=== PATIENT | female | born 1970 | race Caucasian/White ===

== ENCOUNTER → 2017-02-07 | Outpatient (CLI) | payer OTHER | LOC: BMCIMAGING 08:32 | PROVIDERS: ATTEND Internal Medicine | DX: Z12.31 Encounter for screening mammogram for malignant neoplasm of breast (principal) | CPT/HCPCS: G0202 ==

== ENCOUNTER → 2018-02-06 | Outpatient (CLI) | payer OTHER | LOC: BMCIMAGING 11:53 | PROVIDERS: ATTEND Internal Medicine Rheumatology | DX: M25.551 Pain in right hip (principal); M47.816 Spondylosis without myelopathy or radiculopathy, lumbar region; M51.36 Other intervertebral disc degeneration, lumbar region ==

== ENCOUNTER → 2018-03-06 | Outpatient (CLI) | payer OTHER | LOC: BMCIMAGING 08:05 | PROVIDERS: ATTEND Internal Medicine | DX: Z12.31 Encounter for screening mammogram for malignant neoplasm of breast (principal) ==